=== PATIENT | male | born 1980 | race Caucasian/White ===

== ENCOUNTER 2016-05-21 08:56 | Emergency (ER) | payer OTHER ==
[2016-05-21 09:15] VITALS: BP 119/80
--- NOTE | 2016-05-21 09:21 | UC ---
Throat Pain/Nasal Robby HPI - HPI Summary HPI Summary: SINUS PAIN AND PRESSURE X 7 DAYS + NASAL CONGESTION , PND, BILATERAL EAR PAIN NO FEVER, NO CHILLS, + DRY COUGH - History of Current Complaint Chief Complaint: UCRespiratory Stated Complaint: SINUS,COUGH,EAR PAIN Time Seen by Provider: 05/21/16 08:57 Hx Obtained From: Patient Onset/Duration: Gradual Onset, Lasting Days - 7, Still Present Severity: Moderate Cough: Nonproductive Associated Signs & Symptoms: Positive: Sinus Discomfort, Nasal Discharge. Negative: Fever, Vomiting, Rash - Allergies/Home Medications Allergies/Adverse Reactions: Allergies Allergy/AdvReac Type Severity Reaction Status Date / Time strawberries apricots? Allergy Swelling Uncoded 05/21/16 09:09 Of Face,Lips,& Throat Home Medications: Home Medications Ibuprofen TAB* [Advil TAB*] 400 mg PO Q6H PRN 05/21/16 [History Confirmed ] Phenylephrine W/ [id number] [Robitussin Childrens Coug] 20 mg PO BEDTIME PRN [History Confirmed 05/21/16] Pseudoephedrine TAB* [Sudafed TAB*] 30 mg PO Q4H PRN 05/21/16 [History Confirmed 05/21/16] Venlafaxine TAB (NF) [Effexor TAB (NF)] 150 mg PO QAM 05/21/16 [History Confirmed 05/21/16] PMH/Surg Hx/FS Hx/Imm Hx Previously Healthy: Yes - Surgical History Surgical History: None - Family History Known Family History: Negative: Diabetes - Social History Alcohol Use: Occasionally Substance Use Type: None Smoking Status (MU): Never Smoked Tobacco Review of Systems Constitutional: Negative Skin: Negative Eyes: Negative ENT: Sore Throat, Ear Ache, Nasal Discharge Respiratory: Cough Cardiovascular: Negative Gastrointestinal: Negative Genitourinary: Negative All Other Systems Reviewed And Are Negative: Yes Physical Exam Triage Information Reviewed: Yes Appearance: Well-Appearing, No Pain Distress, Well-Nourished Vital Signs: Initial Vital Signs Temp 97.7 F 05/21/16 09:01 Pulse 94 05/21/16 09:01 Resp 18 05/21/16 09:01 BP 119/80 05/21/16 09:01 Pulse Ox 96 05/21/16 09:01 Vital Signs Reviewed: Yes Eye Exam: Normal Eyes: Positive: Conjunctiva Clear ENT: Positive: Normal ENT inspection, Hearing grossly normal, Pharyngeal erythema, Nasal congestion, Nasal drainage, TM bulging - LEFT, TM dull - LEFT EAR, TM red - LEFT EAR Neck: Positive: Supple, Nontender, No Lymphadenopathy Respiratory: Positive: Chest non-tender, Lungs clear, Normal breath sounds Cardiovascular: Positive: RRR, No Murmur, Pulses Normal Throat Pain/Nasal Course/Dx - Differential Dx/Diagnosis Provider Diagnoses: SINUSITIS. OTITIS MEDAI Discharge - Discharge Plan Condition: Stable Disposition: HOME Prescriptions: Amoxicillin/Clavulanate TAB* [Augmentin TAB 875*] 875 mg PO BID #20 tab Patient Education Materials: Sinusitis (ED), Otitis Media (ED) Referrals: Tomasz Palacios DO [Primary Care Provider] - If Needed
== END 2016-05-21 09:40 | disposition home or self-care (01) ==
LOC: UCCORT 08:56
DX: J32.9 Chronic sinusitis, unspecified (principal); H66.93 Otitis media, unspecified, bilateral
CPT/HCPCS: 99212; G0463

== ENCOUNTER 2018-02-19 14:28 | Emergency (ER) | payer OTHER ==
[2018-02-19 14:47] VITALS: BP 119/76
--- NOTE | 2018-02-19 15:39 | UC ---
Respiratory Complaint HPI - HPI Summary HPI Summary: one week history of cough with sinus pressure and sore throat. Using occasional ibuprofen and suppressants. Mild shortness of breath. No hx of pneumonia, asthma or respiratory complaints. - History of Current Complaint Chief Complaint: UCRespiratory Stated Complaint: ST,COUGH Time Seen by Provider: 02/19/18 15:30 Hx Obtained From: Patient Onset/Duration: Gradual Onset, Lasting Days - t Timing: Intermittent Episodes Severity Initially: Moderate Severity Currently: Moderate Pain Intensity: 5 Character: Cough: Productive Aggravating Factors: Deep Breaths, Recumbent Position Alleviating Factors: OTC Meds Associated Signs And Symptoms: Positive: URI, Nasal Congestion. Negative: Dyspnea, Fever, Chills, Wheezing, Dizziness - Risk Factors Pulmonary Embolism Risk Factors: Negative Cardiac Risk Factors: Negative Pseudomonas Risk Factors: Negative Tuberculosis Risk Factors: Negative - Allergies/Home Medications Allergies/Adverse Reactions: Allergies Allergy/AdvReac Type Severity Reaction Status Date / Time strawberries apricots? Allergy Swelling Uncoded 02/19/18 14:43 Of Face,Lips,& Throat Home Medications: Home Medications guaiFENesin ER TAB [Mucinex*] 600 mg PO BID 02/19/18 [History Confirmed 02/19/18 ] PMH/Surg Hx/FS Hx/Imm Hx - Surgical History Surgical History: Yes Surgery Procedure, Year, and Place: ear tubes - Family History Known Family History: Negative: Diabetes - Social History Alcohol Use: Occasionally Substance Use Type: None Smoking Status (MU): Never Smoked Tobacco Review of Systems All Other Systems Reviewed And Are Negative: Yes Constitutional: Positive: Fatigue Skin: Positive: Negative Eyes: Positive: Negative ENT: Positive: Sore Throat Respiratory: Positive: Cough Cardiovascular: Positive: Negative Gastrointestinal: Positive: Negative Genitourinary: Positive: Negative Motor: Positive: Negative Neurovascular: Positive: Negative Musculoskeletal: Positive: Negative Neurological: Positive: Negative Psychological: Positive: Negative Is Patient Immunocompromised?: No Physical Exam Triage Information Reviewed: Yes Appearance: Ill-Appearing - looks mildly fatigued and unwell Vital Signs: Initial Vital Signs Temp 97.6 F 02/19/18 14:44 Pulse 75 02/19/18 14:44 Resp 17 02/19/18 14:44 BP 119/76 02/19/18 14:44 Pulse Ox 96 02/19/18 14:44 Eyes: Positive: Conjunctiva Clear ENT: Positive: Pharyngeal erythema - posterior drainage. Neck: Positive: Supple, Nontender, No Lymphadenopathy Respiratory: Positive: Lungs clear, Normal breath sounds Cardiovascular: Positive: RRR, No Murmur Neurological: Positive: Alert, Muscle Tone Normal Psychological Exam: Normal Skin Exam: Normal UC Diagnostic Evaluation - Laboratory O2 Sat by Pulse Oximetry: 96 Respiratory Course/Dx - Course Course Of Treatment: symptomatic treatment of viral uri with ibuprofen and trial of flonase. - Differential Dx/Diagnosis Differential Diagnosis/HQI/PQRI: Bronchitis, Influenza, Laryngitis, Lower Resp Infection, Sinusitis Provider Diagnosis: Viral URI with cough Discharge - Sign-Out/Discharge Documenting (check all that apply): Patient Departure All imaging exams completed and their final reports reviewed: No Studies - Discharge Plan Condition: Stable Disposition: HOME Patient Education Materials: Pharyngitis (ED) Referrals: Tomasz Palacios DO [Primary Care Provider] - Additional Instructions: Continue symptomatic treatment, adding Flonase spray (fluticasone) 2 sprays to both nostrils once daily to decrease post nasal drainage. Use ibuprofen 600mg every 6 to 8 hours to relieve sore throat. Tessalon perles have been sent in as a cough suppressant. Follow up if you develop fever or increasing shortness of breath. - Billing Disposition and Condition Condition: STABLE Disposition: Home
== END 2018-02-19 15:49 | disposition home or self-care (01) ==
LOC: UCCORT 14:28
DX: J06.9 Acute upper respiratory infection, unspecified (principal); R05 Cough
CPT/HCPCS: 99212; G0463